=== PATIENT | female | born 1965 | race Two or more races ===

== ENCOUNTER 2017-05-27 18:04 | Emergency (ER) | payer SELFPAY ==
[~2017-05-27] VITALS: Ht 152.4 cm; Wt 98.4 kg
[~2017-05-27 18:04] MED LIST: LOPRESSOR50 MG PO
[2017-05-27] MEDS ORDERED: ASPIRIN81 MG PO (18:51)
[2017-05-27] MEDS ORDERED: HYDROCHLOROTH12.5 MG PO (18:52)
[2017-05-27] MEDS ORDERED: ZOLOFT50 MG PO (18:52)
== END 2017-05-27 20:11 | disposition short-term general hospital (02) ==
LOC: ER 18:04
DX: I10 Essential (primary) hypertension (principal); E87.6 Hypokalemia; Z79.899 Other long term (current) drug therapy; Z79.82 Long term (current) use of aspirin; Z88.0 Allergy status to penicillin; Z88.6 Allergy status to analgesic agent
CPT/HCPCS: J8499